=== PATIENT | female | born 1995 | race Caucasian/White ===

== ENCOUNTER 2018-03-30 21:58 | Emergency (ER) | payer MEDICAID ==
[~2018-03-30] VITALS: Ht 165.1 cm; Wt 66.2 kg
[2018-03-30 22:06] VITALS: Ht 165.1 cm; Wt 66.2 kg
[2018-03-31 02:06] VITALS: BP 131/47
== END 2018-03-31 02:52 | disposition left against medical advice (07) ==
LOC: ED 21:58
DX: Z53.21 Procedure and treatment not carried out due to patient leaving prior to being seen by health care provider (principal)